=== PATIENT | female | born 1945 | race Asian ===

== ENCOUNTER 2022-02-25 07:34 | Outpatient (RCR) | payer MEDICARE, BC, SELFPAY ==
[2022-02-25 08:20] LABS: Basophils Absolute Auto 0.03 K/uL (0.00-0.30); Basophils Percent Auto 0.6 % (0.0-3.0); Eosinophils Percent Auto 8.2 % (0.0-7.0); Hematocrit 35.8 % (33.0-51.0); Hemoglobin* 11.5 gm/dL (12.0-16.0); Immature Granulocytes Abs Auto 0.01 K/uL (0.00-0.30); Lymphocytes Percent Auto 9.8 % (20-44); Mean Corpuscular HGB Conc 32 gm/dL (32-36); Mean Corpuscular Hemoglobin 31 pg (26-34); Mean Corpuscular Volume 97 fL (80-100); Monocytes Percent Auto 7.9 % (0.0-11.0); Neutrophils Percent Auto 73.3 % (42.0-72.0); Platelet Count* 219 K/uL (140-440); RDW Coefficient of Variation % 12.5 % (11.5-15.5); Red Blood Count 3.71 m/uL (4.00-5.20); White Blood Count* 4.78 K/uL (4.50-11.00)
[2022-02-25 08:43] LABS: Slide Review Reflex No
[2022-02-25 09:04] LABS: Chloride* 106 mmol/L (96-114); Sodium* 140 mmol/L (135-149)
[2022-02-25 09:05] LABS: Potassium* 4.3 mmol/L (3.6-5.1)
[2022-02-25 09:07] LABS: Alanine Aminotransferase* 20 U/L (4-35); Alkaline Phosphatase* 56 U/L (40-150); Aspartate Amino Transferase* 26 U/L (12-35); Bilirubin Total* 0.2 mg/dL (0.1-1.5); Blood Urea Nitrogen* 18 mg/dL (7-30); Carbon Dioxide* 26 mmol/L (20-32); Creatinine* 0.7 mg/dL (0.5-1.5); Estimated Glomerular Filt Rate 91 ml/min; Glucose* 122 mg/dL (60-115); Total Protein* 6.8 g/dL (6.0-8.3)
[2022-02-25 09:21] LABS: Lactate Dehydrogenase* 406 U/L (313-618)
== END 2022-03-07 23:59 | disposition home or self-care (01) ==
LOC: CCIC 07:34
PROVIDERS: Internal Medicine Medical Oncology; PCP Physician Assistant; Visit Provider Nurse Practitioner Family
DX: C83.30 Diffuse large B-cell lymphoma, unspecified site (principal); D64.9 Anemia, unspecified
CPT/HCPCS: 36415; 80053; 83615; 85025; 99203; 99213; 99214

== ENCOUNTER 2022-06-17 09:54 | Outpatient (CLI) | payer MEDICARE, BC, SELFPAY ==
--- NOTE | 2022-06-17 10:00 | CRLHL7_ITS ---
For Patients: As a result of the Century Cures Act, medical imaging exams and procedure reports are released immediately into your electronic medical record. You may view this report before your referring provider. If you have questions, please contact your health care provider. INDICATION: Diffuse large cell lymphoma. Follow-up. COMPARISON: Correlation is made with a PET/CT scan October 09, 2020. Correlation is made with a CT of the chest abdomen and pelvis June 17, 2022, November 02, 2021, and April 23, 2021. TECHNIQUE: A CT volumetric acquisition was performed of the neck during intravenous infusion of 74 cc of Isovue 370 nonionic intravenous contrast. FINDINGS: The CT images demonstrate normal aeration of the mastoid air cells and middle ear cavities. The paranasal sinuses are clear with the exception of a polyp or retention cyst within the inferomedial left maxillary sinus image 18 series 4 measuring between 9 and 10 mm. The nasopharynx appears normal. The parotid and submandibular glands are of normal size and have uniform enhancement. The oropharynx appears normal. The valleculae, epiglottis, aryepiglottic folds and piriform sinuses appear normal. There is a normal appearance of the larynx and subglottic trachea. The thyroid gland is of normal size and has uniform density. However the thyroid gland does contain a few very tiny low-attenuation lesions of doubtful significance none measuring more than a few mm. There is no evidence of lymphadenopathy within the anterior and posterior cervical triangles or within the supraclavicular region. The included lung apices are clear. There is a subtle soft tissue density or nodule within the subcutaneous soft tissues of the upper anterior medial left chest wall image 67 series 3 measuring up to 9 mm. This is almost certainly related to a previous left-sided Port-A-Cath with subsequent removal indicating a small residual focus of presumed hematoma. IMPRESSION: Negative neck CT. No evidence for recurrent or metastatic disease. Please note that all CT scans at this facility use dose modulation, iterative reconstruction, and/or weight-based dosing when appropriate to reduce radiation dose to as low as reasonably achievable. Dictated by Donato Christensen MD @ 06/17/2022 9:02:53 PM (Electronically Signed)
--- NOTE | 2022-06-17 10:00 | CRLHL7_ITS ---
For Patients: As a result of the Century Cures Act, medical imaging exams and procedure reports are released immediately into your electronic medical record. You may view this report before your referring provider. If you have questions, please contact your health care provider. INDICATION: Diffuse large cell lymphoma. Follow-up. TECHNIQUE: Contrast-enhanced CT of the chest abdomen and pelvis. 74 cc nonionic Isovue-370 administered. COMPARISON: April 23, 2021. November 02, 2021. FINDINGS: CT chest: Few tiny stable thyroid lobe nodules of uncertain and probably doubtful significance given their small size and stability. No thoracic lymphadenopathy. No pleural or pericardial effusions. The trachea and mainstem bronchi are patent and clear. Both lungs are expanded and clear without pneumothoraces nodules or infiltrates. The included breasts are unremarkable. Normal caliber thoracic aorta. CT of the abdomen and pelvis: Stable multiple tiny hepatic cysts. The liver is otherwise negative. The spleen, pancreas, gallbladder, both adrenal glands and both kidneys are normal. Normal caliber abdominal aorta and iliac arteries. Stable 9 mm short axis left para-aortic retroperitoneal lymph node image 163 series 3 entirely unchanged compared to the 2 prior studies and therefore of doubtful significance. No pelvic or inguinal lymphadenopathy. Postsurgical or post treatment changes right inguinal region. Minor asymmetric thickening along the right lateral pelvic side wall, unchanged, likely site of treated disease. Stable enlarged right ovary relative to the left. Calcified uterine fibroids. The urinary bladder is unremarkable. No left adnexal mass. No ascites. Few scattered left tonya colonic diverticula. No diverticulitis. No bowel obstruction or ileus. Mild thoracolumbar curve. The included skeleton is unremarkable. There is a chronic ossicle at the L2 level within the posterior spinal canal measuring 9 mm seen previously. IMPRESSION: Stable CT chest abdomen and pelvis. No change when compared to November 02, 2021 nor April 23, 2021. Please note that all CT scans at this facility use dose modulation, iterative reconstruction, and/or weight-based dosing when appropriate to reduce radiation dose to as low as reasonably achievable. Dictated by Donato Christensen MD @ 06/17/2022 4:05:20 PM (Electronically Signed)
== END 2022-06-17 09:55 | disposition home or self-care (01) ==
LOC: CT 09:55
PROVIDERS: PCP Physician Assistant; Visit Provider Nurse Practitioner Family
DX: C83.30 Diffuse large B-cell lymphoma, unspecified site (principal)
CPT/HCPCS: 70491; 71260; 74177; 80053; 83615; 85025; Q9967

== ENCOUNTER 2023-03-30 11:30 | Outpatient (RCR) | payer MEDICARE, BC, SELFPAY ==
[2023-01-06 12:22] LABS: Basophils Absolute Auto 0.01 K/uL (0.00-0.30); Basophils Percent Auto 0.2 % (0.0-3.0); Eosinophils Absolute Auto 0.24 K/uL (0.00-0.50); Eosinophils Percent Auto 3.7 % (0.0-7.0); Hemoglobin* 12.1 gm/dL (12.0-16.0); Immature Granulocytes Abs Auto 0.01 K/uL (0.00-0.30); Immature Granulocytes Pct Auto 0.2 %; Lymphocytes Percent Auto 9.5 % (20-44); Mean Corpuscular HGB Conc 32 gm/dL (32-36); Mean Corpuscular Hemoglobin 31 pg (26-34); Mean Corpuscular Volume 98 fL (80-100); Monocytes Percent Auto 8.2 % (0.0-11.0); Neutrophils Percent Auto 78.2 % (42.0-72.0); Platelet Count* 232 K/uL (140-440); RDW Coefficient of Variation % 12.7 % (11.5-15.5); Red Blood Count 3.88 m/uL (4.00-5.20); White Blood Count* 6.43 K/uL (4.50-11.00)
[2023-01-06 12:34] LABS: Albumin* 4.2 g/dL (3.3-5.0); Chloride* 105 mmol/L (96-114); Potassium* 4.4 mmol/L (3.6-5.1); Slide Review Reflex No; Sodium* 140 mmol/L (135-149)
[2023-01-06 12:36] LABS: Bilirubin Total* 0.4 mg/dL (0.1-1.5); Creatinine* 0.7 mg/dL (0.5-1.5); Estimated Glomerular Filt Rate 90 ml/min
[2023-01-06 12:37] LABS: Alanine Aminotransferase* 22 U/L (4-35); Alkaline Phosphatase* 45 U/L (40-150); Aspartate Amino Transferase* 21 U/L (12-35); Blood Urea Nitrogen* 17 mg/dL (7-30); Carbon Dioxide* 31 mmol/L (20-32); Glucose* 97 mg/dL (60-115); Lactate Dehydrogenase* 175 U/L (120-246); Total Protein* 6.9 g/dL (6.0-8.3)
[2023-01-06 12:38] LABS: Calcium* 9.4 mg/dL (8.4-10.6)
[2023-03-30 12:24] LABS: Basophils Absolute Auto 0.02 K/uL (0.00-0.30); Basophils Percent Auto 0.4 % (0.0-3.0); Eosinophils Absolute Auto 0.27 K/uL (0.00-0.50); Eosinophils Percent Auto 5.5 % (0.0-7.0); Hematocrit 36.6 % (33.0-51.0); Hemoglobin* 11.7 gm/dL (12.0-16.0); Lymphocytes Percent Auto 16.9 % (20-44); Mean Corpuscular HGB Conc 32 gm/dL (32-36); Mean Corpuscular Hemoglobin 31 pg (26-34); Mean Corpuscular Volume 96 fL (80-100); Neutrophils Absolute Auto 3.31 K/uL (1.7-7.0); Neutrophils Percent Auto 67.2 % (42.0-72.0); Platelet Count* 251 K/uL (140-440); RDW Coefficient of Variation % 13.1 % (11.5-15.5); White Blood Count* 4.92 K/uL (4.50-11.00)
[2023-03-30 12:25] LABS: Slide Review Reflex No
[2023-03-30 12:31] LABS: Albumin* 4.4 g/dL (3.3-5.0)
[2023-03-30 12:32] LABS: Chloride* 107 mmol/L (96-114); Potassium* 3.8 mmol/L (3.6-5.1); Sodium* 140 mmol/L (135-149)
[2023-03-30 12:34] LABS: Alkaline Phosphatase* 54 U/L (40-150); Anion Gap 6 mEq/L (7-15); Aspartate Amino Transferase* 26 U/L (12-35); Bilirubin Total* 0.6 mg/dL (0.1-1.5); Carbon Dioxide* 27 mmol/L (20-32); Creatinine* 0.7 mg/dL (0.5-1.5); Estimated Glomerular Filt Rate 90 ml/min; Total Protein* 7.4 g/dL (6.0-8.3)
[2023-03-30 12:35] LABS: Alanine Aminotransferase* 20 U/L (4-35); Blood Urea Nitrogen* 29 mg/dL (7-30); Glucose* 97 mg/dL (60-115); Lactate Dehydrogenase* 222 U/L (120-246)
[2023-04-01 15:01] LABS: Calcium* 9.4 mg/dL (8.4-10.6)
== END 2023-07-05 23:59 | disposition home or self-care (01) ==
LOC: CCIC 11:30
PROVIDERS: Nurse Practitioner Family; PCP Family Medicine; Referring Provider Family Medicine; Visit Provider Internal Medicine Hematology & Oncology
DX: C83.30 Diffuse large B-cell lymphoma, unspecified site (principal)
CPT/HCPCS: 36415; 80053; 83615; 85025; 99212; 99213; 99214

== ENCOUNTER 2023-12-14 12:30 | Outpatient (RCR) | payer MEDICARE, BC, SELFPAY ==
[2023-08-17 13:28] LABS: Basophils Absolute Auto 0.02 K/uL (0.00-0.30); Basophils Percent Auto 0.3 % (0.0-3.0); Eosinophils Absolute Auto 0.22 K/uL (0.00-0.50); Eosinophils Percent Auto 3.6 % (0.0-7.0); Hematocrit 37.2 % (33.0-51.0); Hemoglobin* 11.9 gm/dL (12.0-16.0); Immature Granulocytes Abs Auto 0.01 K/uL (0.00-0.30); Immature Granulocytes Pct Auto 0.2 %; Lymphocytes Percent Auto 10.9 % (20-44); Mean Corpuscular HGB Conc 32 gm/dL (32-36); Mean Corpuscular Hemoglobin 31 pg (26-34); Mean Corpuscular Volume 96 fL (80-100); Monocytes Percent Auto 5.8 % (0.0-11.0); Neutrophils Percent Auto 79.2 % (42.0-72.0); Platelet Count* 224 K/uL (140-440); RDW Coefficient of Variation % 12.8 % (11.5-15.5); Red Blood Count 3.89 m/uL (4.00-5.20); White Blood Count* 6.16 K/uL (4.50-11.00)
[2023-08-17 13:30] LABS: Slide Review Reflex No
[2023-08-17 13:42] LABS: Albumin* 4.5 g/dL (3.3-5.0); Chloride* 105 mmol/L (96-114)
[2023-08-17 13:43] LABS: Potassium* 4.1 mmol/L (3.6-5.1); Sodium* 139 mmol/L (135-149)
[2023-08-17 13:45] LABS: Alkaline Phosphatase* 62 U/L (40-150); Anion Gap 6 mEq/L (7-15); Aspartate Amino Transferase* 26 U/L (12-35); Bilirubin Total* 0.3 mg/dL (0.1-1.5); Blood Urea Nitrogen* 23 mg/dL (7-30); Carbon Dioxide* 28 mmol/L (20-32); Creatinine* 0.7 mg/dL (0.5-1.5); Estimated Glomerular Filt Rate 90 ml/min; Lactate Dehydrogenase* 208 U/L (120-246); Total Protein* 7.4 g/dL (6.0-8.3)
[2023-08-17 13:46] LABS: Alanine Aminotransferase* 22 U/L (4-35); Glucose* 135 mg/dL (60-115)
[2023-12-14 13:08] LABS: Basophils Absolute Auto 0.02 K/uL (0.00-0.30); Basophils Percent Auto 0.4 % (0.0-3.0); Eosinophils Percent Auto 6.5 % (0.0-7.0); Hemoglobin* 12.3 gm/dL (12.0-16.0); Immature Granulocytes Abs Auto 0.01 K/uL (0.00-0.30); Immature Granulocytes Pct Auto 0.2 %; Lymphocytes Percent Auto 19.3 % (20-44); Mean Corpuscular HGB Conc 32 gm/dL (32-36); Mean Corpuscular Hemoglobin 30 pg (26-34); Mean Corpuscular Volume 96 fL (80-100); Monocytes Percent Auto 11.3 % (0.0-11.0); Neutrophils Absolute Auto 2.86 K/uL (1.7-7.0); Neutrophils Percent Auto 62.3 % (42.0-72.0); Platelet Count* 264 K/uL (140-440); RDW Coefficient of Variation % 12.8 % (11.5-15.5); Red Blood Count 4.07 m/uL (4.00-5.20)
[2023-12-14 13:15] LABS: Slide Review Reflex No
[2023-12-14 14:22] LABS: Albumin* 4.3 g/dL (3.3-5.0); Chloride* 104 mmol/L (96-114); Potassium* 4.5 mmol/L (3.6-5.1); Sodium* 138 mmol/L (135-149)
[2023-12-14 14:24] LABS: Anion Gap 6 mEq/L (7-15); Bilirubin Total* 0.4 mg/dL (0.1-1.5); Carbon Dioxide* 28 mmol/L (20-32); Creatinine* 0.7 mg/dL (0.5-1.5); Estimated Glomerular Filt Rate 90 ml/min
[2023-12-14 14:25] LABS: Alanine Aminotransferase* 22 U/L (4-35); Alkaline Phosphatase* 56 U/L (40-150); Aspartate Amino Transferase* 26 U/L (12-35); Blood Urea Nitrogen* 30 mg/dL (7-30); Calcium* 10.2 mg/dL (8.4-10.6); Glucose* 97 mg/dL (60-115); Lactate Dehydrogenase* 212 U/L (120-246); Total Protein* 7.7 g/dL (6.0-8.3)
== END 2024-02-13 23:59 | disposition home or self-care (01) ==
LOC: CCIC 12:30
PROVIDERS: PCP Family Medicine; Referring Provider Family Medicine; Visit Provider Internal Medicine Hematology & Oncology
DX: C83.30 Diffuse large B-cell lymphoma, unspecified site (principal)
CPT/HCPCS: 36415; 80053; 83615; 85025; 99213; 99214; G0463

== ENCOUNTER 2024-11-15 13:43 | Outpatient (CLI) | payer MEDICARE, BC, SELFPAY ==
--- NOTE | 2024-11-15 14:00 | CRLHL7_ITS ---
For Patients: As a result of the Century Cures Act, medical imaging exams and procedure reports are released immediately into your electronic medical record. You may view this report before your referring provider. If you have questions, please contact your health care provider. CLINICAL HISTORY: Lymphoma. TECHNIQUE: Following IV injection of 68-mzuwgz-8-deoxyglucose (FDG) and a standard uptake period of approximately 60 minutes, a non-contrast CT scan followed by a PET scan were acquired along the length of the body from the mid portion of the head to the mid thighs. The non-contrast CT was used for anatomic localization and photon attenuation correction of the PET scan. Blood Glucose Level (mg/dL): 108 FDG Dose (mCi): 12.2 COMPARISON: CT scans of the chest, abdomen, and pelvis dated 17 June 2022 and 02 November 2021. PET-CT scan dated 09 October 2020. FINDINGS: Head/Neck: No abnormal activity identified in the head and neck. Chest: No mediastinal or hilar adenopathy. No axillary adenopathy. Small area of increased activity in the upper esophagus, SUV max 5.1, with no corresponding CT abnormality. The lungs show no focal pulmonary opacities. No pneumothorax. Abdomen/Pelvis: No focal abnormalities identified in the visualized portions of the liver, spleen, pancreas, adrenal glands, and kidneys. No hydronephrosis. A few calcified uterine fibroids. A few areas of increased activity in the colon with no corresponding CT abnormality is likely physiologic. The remainder of the GI tract is incompletely distended but shows no gross abnormalities. 3.2 cm right adnexal mass may represent an exophytic uterine fibroid is unchanged. No retroperitoneal, pelvic sidewall, or mesenteric adenopathy. Bones: Degenerative changes of the spine. No abnormal skeletal activity identified. IMPRESSION: 1. No adenopathy. [place] 1. 2. Small area of increased activity in the upper esophagus with no corresponding CT abnormality may be physiologic. Dictated by Koby Lopes MD @ 11/16/2024 3:21:39 PM (Electronically Signed)
== END 2024-11-15 13:44 | disposition home or self-care (01) ==
LOC: RAD 13:44
PROVIDERS: PCP Family Medicine; Visit Provider Internal Medicine Hematology & Oncology
DX: C83.35 Diffuse large B-cell lymphoma, lymph nodes of inguinal region and lower limb (principal)
CPT/HCPCS: 78815; A9552

== ENCOUNTER 2024-11-21 13:00 | Outpatient (RCR) | payer MEDICARE, BC, SELFPAY ==
[2024-07-04 09:24] LABS: Basophils Absolute Auto 0.02 K/uL (0.00-0.30); Basophils Percent Auto 0.3 % (0.0-3.0); Eosinophils Absolute Auto 0.38 K/uL (0.00-0.50); Hematocrit 41.1 % (33.0-51.0); Hemoglobin* 13.1 gm/dL (12.0-16.0); Immature Granulocytes Abs Auto 0.01 K/uL (0.00-0.30); Immature Granulocytes Pct Auto 0.2 %; Lymphocytes Percent Auto 11.9 % (20-44); Mean Corpuscular HGB Conc 32 gm/dL (32-36); Mean Corpuscular Hemoglobin 31 pg (26-34); Mean Corpuscular Volume 97 fL (80-100); Monocytes Percent Auto 8.8 % (0.0-11.0); Neutrophils Percent Auto 72.8 % (42.0-72.0); Platelet Count* 251 K/uL (140-440); RDW Coefficient of Variation % 12.4 % (11.5-15.5); Red Blood Count 4.23 m/uL (4.00-5.20); White Blood Count* 6.36 K/uL (4.50-11.00)
[2024-07-04 09:31] LABS: Slide Review Reflex No
[2024-07-04 09:48] LABS: Albumin* 4.6 g/dL (3.3-5.0)
[2024-07-04 09:49] LABS: Chloride* 107 mmol/L (96-114); Potassium* 4.4 mmol/L (3.6-5.1); Sodium* 139 mmol/L (135-149)
[2024-07-04 09:51] LABS: Alkaline Phosphatase* 53 U/L (40-150); Anion Gap 7 mEq/L (7-15); Aspartate Amino Transferase* 22 U/L (12-35); Bilirubin Total* 0.2 mg/dL (0.1-1.5); Carbon Dioxide* 25 mmol/L (20-32); Creatinine* 0.7 mg/dL (0.5-1.5); Estimated Glomerular Filt Rate 90 ml/min; Total Protein* 7.6 g/dL (6.0-8.3)
[2024-07-04 09:52] LABS: Alanine Aminotransferase* 18 U/L (4-35); Blood Urea Nitrogen* 24 mg/dL (7-30); Glucose* 95 mg/dL (60-115); Lactate Dehydrogenase* 191 U/L (120-246)
--- NOTE | 2024-07-25 09:05 | ONC.NURNOTE ---
Pet scheduled 11/15/24 @ 1400. Order and packet faxed to [facility].
[2024-11-21 13:17] LABS: Basophils Absolute Auto 0.02 K/uL (0.00-0.30); Basophils Percent Auto 0.3 % (0.0-3.0); Eosinophils Percent Auto 4.8 % (0.0-7.0); Hematocrit 38.5 % (33.0-51.0); Hemoglobin* 12.2 gm/dL (12.0-16.0); Immature Granulocytes Abs Auto 0.01 K/uL (0.00-0.30); Immature Granulocytes Pct Auto 0.2 %; Lymphocytes Percent Auto 13.7 % (20-44); Mean Corpuscular HGB Conc 32 gm/dL (32-36); Mean Corpuscular Hemoglobin 31 pg (26-34); Mean Corpuscular Volume 98 fL (80-100); Monocytes Percent Auto 6.4 % (0.0-11.0); Neutrophils Percent Auto 74.6 % (42.0-72.0); Platelet Count* 246 K/uL (140-440); RDW Coefficient of Variation % 12.7 % (11.5-15.5); Red Blood Count 3.95 m/uL (4.00-5.20); White Blood Count* 6.29 K/uL (4.50-11.00)
[2024-11-21 13:23] LABS: Slide Review Reflex No
[2024-11-21 13:34] LABS: Albumin* 4.4 g/dL (3.3-5.0); Chloride* 107 mmol/L (96-114); Potassium* 4.6 mmol/L (3.6-5.1); Sodium* 141 mmol/L (135-149)
[2024-11-21 13:37] LABS: Alanine Aminotransferase* 21 U/L (4-35); Alkaline Phosphatase* 61 U/L (40-150); Anion Gap 10 mEq/L (7-15); Aspartate Amino Transferase* 29 U/L (12-35); Bilirubin Total* 0.4 mg/dL (0.1-1.5); Blood Urea Nitrogen* 25 mg/dL (7-30); Calcium* 9.4 mg/dL (8.4-10.6); Carbon Dioxide* 24 mmol/L (20-32); Creatinine* 0.7 mg/dL (0.5-1.5); Est. Creatinine Clearance* 33.84; Estimated Glomerular Filt Rate 89 ml/min; Glucose* 100 mg/dL (60-115); Lactate Dehydrogenase* 198 U/L (120-246); Total Protein* 7.2 g/dL (6.0-8.3)
== END 2024-12-31 23:59 | disposition home or self-care (01) ==
LOC: CCIC 13:00
PROVIDERS: Clinical Nurse Specialist; PCP Family Medicine; Referring Provider Family Medicine; Visit Provider Internal Medicine Hematology & Oncology
DX: C83.30 Diffuse large B-cell lymphoma, unspecified site (principal)
CPT/HCPCS: 36415; 80053; 83615; 85025; 99213; 99214; G0463